=== PATIENT | male | born 1960 | race Two or more races ===

== ENCOUNTER 2025-05-28 19:27 | Emergency (ER) | payer MEDICAID, OTHER ==
[~2025-05-28] VITALS: Ht 167.6 cm; Wt 88.5 kg
[2025-05-28 19:28] VITALS: TEMP 99
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
[2025-05-28] MEDS: KETOROLAC TROMETH 60MG/2ML VIAL IM ONE (22:19)
[2025-05-28 22:24] VITALS: BP 132/67; PULSE 62; RESP 19; O2SAT 98
[2025-05-28] MEDS ORDERED: IBUP-1455 PO (23:58)
[2025-05-28] MEDS ORDERED: ACET500T58 PO (23:58)
== END 2025-05-29 00:17 | disposition home or self-care (01) ==
LOC: ER 19:33
DX: S16.1XXA Strain of muscle, fascia and tendon at neck level, initial encounter (principal); M54.50 Low back pain, unspecified; V89.2XXA Person injured in unspecified motor-vehicle accident, traffic, initial encounter; Y93.89 Activity, other specified; Y92.89 Other specified places as the place of occurrence of the external cause; Y99.8 Other external cause status
CPT/HCPCS: 72040; 96372; J1885